=== PATIENT | female | born 1960 | race Two or more races ===

== ENCOUNTER 2024-12-30 12:00 | Inpatient (IN) | payer OTHER ==
[~2024-12-30] VITALS: Ht 157.5 cm; Wt 83.9 kg
[2025-01-03] MEDS ORDERED: SYNTHROID100 MCG PO (09:04)
[2025-01-03] MEDS ORDERED: ZOLOFT100 MG PO (09:05)
[2025-01-03] MEDS ORDERED: KLONOPIN (09:05)
[2025-01-03] MEDS ORDERED: NEURONTIN800 MG PO (09:06)
[2025-01-03] MEDS ORDERED: LIPITOR40 M1 PO (09:06)
[2025-01-03 09:08] VITALS: BP 114/69
[2025-01-03 09:13] VITALS: BP 109/69
[2025-01-05] MEDS ORDERED: CEFTRIAXONE SODIUM 2,000 MG VIAL ONE (11:15)
[2025-01-05] MEDS ORDERED: METRONIDAZOLE/SODIUM CHLORIDE 500 MG/100 ML PIGGYBACK IV ONE (11:15)
[2025-01-05] MEDS ORDERED: BUPIVACAINE HCL/MPF 0.5% 30ML VIAL ONE (12:48)
[2025-01-05] MEDS ORDERED: LIDOCAINE HCL 1%/EPINEPHRINE 20ML VIAL IJ ONE (12:49)
[2025-01-05] MEDS ORDERED: CHLORHEXIDINE GLUCONATE 120 ML BOTTLE TOP ONE (12:49)
[2025-01-05] MEDS ORDERED: ONDANSETRON HCL 2 MG/ML VIAL IV PRN (14:30)
[2025-01-05] MEDS ORDERED: OxyCODONE HCL 5 MG TABLET (ROXICODONE) PO PRN (14:30)
[2025-01-05] MEDS ORDERED: MORPHINE SULFATE 4 MG/ML CARTRIDGE IV PRN (14:30)
[2025-01-05] MEDS ORDERED: 0.9 % SODIUM CHLORIDE 1,000 ML IV SCH (14:30)
[2025-01-05] MEDS ORDERED: DEXTROSE 50 % IN WATER 0.5 G/ML VIAL IV PRN (14:30)
[2025-01-05] MEDS ORDERED: ENALAPRILAT DIHYDRATE 1.25 MG/ML VIAL IV ONE (15:06)
[2025-01-05] MEDS ORDERED: hydrALAZINE HCL 20 MG VIAL ONE (16:12)
[2025-01-05] MEDS ORDERED: POLYETHYLENE GLYCOL 3350 17 GM BLIST.PACK PO SCH (17:00)
[2025-01-05] MEDS ORDERED: GABAPENTIN 300 MG CAPSULE PO SCH (17:00)
[2025-01-05] MEDS ORDERED: METRONIDAZOLE/SODIUM CHLORIDE 500 MG/100 ML PIGGYBACK IV SCH (17:00)
[2025-01-05] MEDS ORDERED: HYOSCYAMINE SULFATE 0.125 MG TAB.SUBL SL SCH (17:00)
[2025-01-05] MEDS ORDERED: MORPHINE SULFATE 4 MG/ML VIAL IV ONE (17:20)
[2025-01-05] MEDS ORDERED: MORPHINE SULFATE 2 MG/ML CARTRIDGE IV ONE (18:05)
[2025-01-05] MEDS ORDERED: ACETAMINOPHEN 500 MG GEL..CAP PO SCH (20:00)
[2025-01-05] MEDS ORDERED: FAMOTIDINE/PF 20 MG/2 ML VIAL ONE (20:28)
[2025-01-05] MEDS ORDERED: FAMOTIDINE/PF 20 MG/2 ML VIAL IV PUSH SCH (21:00)
[2025-01-05 21:21] LABS: BASO % 0.2 % (0.1-1.2); EOS # 0.04 (0.04-0.54); EOS % 0.2 % (0.7-7.0); HEMATOCRIT 38.6 % (34.1-44.9); HEMOGLOBIN 11.9 g/dL (11.2-15.7); LYMPH % 5.4 % (19.3-53.1); MEAN CORPUSCULAR HEMOGLOBIN 26.9 pg (25.6-32.2); MONO # 1.35 (0.24-0.82); MONO % 7.3 % (4.7-12.5); NEUT # 15.89 (1.56-6.13); NEUT % 86.5 % (34.0-71.1); PLATELET COUNT 389 K/uL (163-369); RED BLOOD COUNT 4.42 M/uL (3.93-5.22); RED CELL DISTRIBUTION WIDTH 15.6 % (11.6-14.4)
[2025-01-05 21:37] LABS: ALBUMIN 3.3 gm/dL (3.4-5.0); CALCIUM 8.7 mg/dL (8.5-10.1); CREATININE SERUM 0.94 mg/dL (0.55-1.02); GFR 59.76; MAGNESIUM 1.8 mg/dL (1.8-2.4); PHOSPHOROUS 4.2 mg/dL (2.5-4.9); POTASSIUM 4.29 mEq/L (3.5-5.1)
[2025-01-05 21:59] VITALS: BP 114/69; O2SAT 96
[2025-01-06 03:11] VITALS: BP 112/64; O2SAT 90
[2025-01-06 08:00] VITALS: BP 115/68; O2SAT 95
[2025-01-06 08:40] LABS: BASO % 0.2 % (0.1-1.2); HEMATOCRIT 33.1 % (34.1-44.9); HEMOGLOBIN 10.3 g/dL (11.2-15.7); LYMPH # 1.68 (1.18-3.74); LYMPH % 13.7 % (19.3-53.1); MEAN CORPUSCULAR HEMOGLOBIN 27.5 pg (25.6-32.2); MONO # 1.09 (0.24-0.82); MONO % 8.9 % (4.7-12.5); NEUT # 9.44 (1.56-6.13); NEUT % 76.9 % (34.0-71.1); PLATELET COUNT 336 K/uL (163-369); RED BLOOD COUNT 3.75 M/uL (3.93-5.22); RED CELL DISTRIBUTION WIDTH 15.9 % (11.6-14.4)
[2025-01-06 09:07] LABS: ALBUMIN 2.7 gm/dL (3.4-5.0); CALCIUM 7.6 mg/dL (8.5-10.1); CREATININE SERUM 0.82 mg/dL (0.55-1.02); GFR 69.96; MAGNESIUM 1.8 mg/dL (1.8-2.4); POTASSIUM 4.09 mEq/L (3.5-5.1)
[2025-01-06] MEDS ORDERED: TAMSULOSIN HCL 0.4 MG CAP PO STA (14:32)
[2025-01-06 15:45] VITALS: BP 112/70; O2SAT 95
[2025-01-06] MEDS ORDERED: ENOXAPARIN SODIUM 40 MG/0.4 ML SYRINGE SUBCUTANEO SCH (17:00)
[2025-01-06] MEDS ORDERED: LIDOCAINE HCL 1% 10ML VIAL ONE (19:03)
[2025-01-07 00:57] VITALS: BP 119/70; O2SAT 91
[2025-01-07] MEDS ORDERED: LEVOTHYROXINE SODIUM 100 MCG TABLET PO SCH (06:00)
[2025-01-07 08:00] VITALS: BP 108/66; O2SAT 88
[2025-01-07] MEDS ORDERED: CLONAZEPAM 1 MG TABLET PO SCH (09:00)
[2025-01-07] MEDS ORDERED: Cyanocobalamin/Mecobalamin 1 TAB.SL SL SCH (09:00)
[2025-01-07] MEDS ORDERED: FOLIC ACID 1 MG TABLET PO SCH (09:00)
[2025-01-07] MEDS ORDERED: ENOXAPARIN SODIUM 40 MG/0.4 ML SYRINGE SUBCUTANEO SCH (09:00)
[2025-01-07] MEDS ORDERED: SERTRALINE HCL 100 MG TABLET PO SCH (09:00)
[2025-01-07 15:58] VITALS: BP 120/70; O2SAT 97
[2025-01-07] MEDS ORDERED: CALCIUM CARBONATE/VITAMIN D3 1 TAB TABLET PO SCH (17:00)
[2025-01-07] MEDS ORDERED: AMINO ACIDS 1 EACH TABLET PO SCH (17:00)
[2025-01-08] VITALS: BP 119/75; O2SAT 95
[2025-01-08 09:00] VITALS: BP 125/72; O2SAT 100
[2025-01-08] MEDS ORDERED: METHYLPREDNISOLONE SOD SUCC 40 MG VIAL IV SCH (15:00)
[2025-01-08] MEDS ORDERED: DIPHENHYDRAMINE HCL 50 MG/ML VIAL 1ML IV SCH (15:00)
[2025-01-08 16:11] VITALS: BP 113/70; O2SAT 96
[2025-01-09 00:15] VITALS: BP 132/80; O2SAT 96
[2025-01-09 08:30] VITALS: BP 123/73; O2SAT 93
[2025-01-09] MEDS ORDERED: METHYLPREDNISOLONE SOD SUCC 40 MG VIAL IV NR (09:00)
[2025-01-09] MEDS ORDERED: DIPHENHYDRAMINE HCL 50 MG/ML VIAL 1ML IV NR (09:00)
[2025-01-09] MEDS ORDERED: PANTOPRAZOLE SODIUM 40 MG in 0.9 % SODIUM CHLORIDE 8 ML IV PUSH NR (16:00)
[2025-01-09] MEDS ORDERED: 0.9 % SODIUM CHLORIDE 10 ML VIAL IJ ONE ×2 (16:52)
[2025-01-09 17:00] VITALS: BP 132/77; O2SAT 96
[2025-01-09] MEDS ORDERED: PANTOPRAZOLE SODIUM 40 MG/VIAL VIAL IV NR (17:30)
[2025-01-09 19:25] LABS: ABG PH 7.363 (7.35-7.45); ABG PO2 78.1 mmHg (80-100); ABG pCO2 46.1 mmHg (35-45); BASE EXCESS -0.2 mmol/l; BICARBONATE 25.6 mmol/l (23-25); SaO2 94.8 %
[2025-01-09 20:21] LABS: allen test SATISFACTORY; mode ROOM AIR; o2 21 %; puncture site RADIAL RIGHT
[2025-01-10 01:15] VITALS: BP 105/67; O2SAT 100
[2025-01-10 08:09] VITALS: BP 126/70; O2SAT 94
[2025-01-10] MEDS ORDERED: PERCOCET 5-3251 EACH PO (08:16)
[2025-01-10] MEDS ORDERED: ZOFRAN8 MG PO (08:17)
[2025-01-10] MEDS ORDERED: DICY20TA PO (08:17)
[2025-01-10] MEDS ORDERED: PROTONIX40 MG PO (08:18)
[2025-01-10] MEDS ORDERED: PANTOPRAZOLE SODIUM 40 MG in 0.9 % SODIUM CHLORIDE 8 ML IV PUSH SCH (09:00)
== END 2025-01-10 11:03 | disposition home or self-care (01) | DRG 331 ==
LOC: SURG 01-05 09:12 → O/R 01-05 09:12 → SURH 01-05 12:00 → SURG 01-05 17:56
PROVIDERS: Internal Medicine; ADMIT Surgery; ATTEND Surgery
PROC: 07BB4ZZ Excision of Mesenteric Lymphatic, Percutaneous Endoscopic Approach (ICD-10-PCS; 2025-01-05)
PROC: 0DTF4ZZ Resection of Right Large Intestine, Percutaneous Endoscopic Approach (ICD-10-PCS; principal; 2025-01-05 15:00)
PROC: 05HC33Z Insertion of Infusion Device into Left Basilic Vein, Percutaneous Approach (ICD-10-PCS; 2025-01-07)
PROC: BW24YZZ Computerized Tomography (CT Scan) of Chest and Abdomen using Other Contrast (ICD-10-PCS; 2025-01-08)
PROC: 4A033R1 Measurement of Arterial Saturation, Peripheral, Percutaneous Approach (ICD-10-PCS; 2025-01-09)
DX: C18.0 Malignant neoplasm of cecum (principal); R19.4 Change in bowel habit; J44.9 Chronic obstructive pulmonary disease, unspecified; R09.02 Hypoxemia; D64.9 Anemia, unspecified

== ENCOUNTER 2025-01-03 10:47 | Outpatient (CLI) | payer OTHER ==
[~2025-01-03 10:47] MED LIST: KLONOPIN; LIPITOR40 M1 PO; NEURONTIN800 MG PO; SYNTHROID100 MCG PO; ZOLOFT100 MG PO
== END 2025-01-03 10:59 | disposition home or self-care (01) ==
LOC: TOM 10:47
PROVIDERS: ATTEND Surgery
DX: C18.0 Malignant neoplasm of cecum (principal); R19.4 Change in bowel habit
CPT/HCPCS: 71260; 74177; Q9965

== ENCOUNTER 2025-01-16 12:24 | Emergency (ER) | payer OTHER ==
[~2025-01-16] VITALS: Ht 157.5 cm; Wt 83.9 kg
[~2025-01-16 12:24] MED LIST changes: +DICY20TA PO; +PERCOCET 5-3251 EACH PO; +PROTONIX40 MG PO; +ZOFRAN8 MG PO
[2025-01-16] MEDS ORDERED: PEPCID AC20 MG PO (13:21)
[2025-01-16] MEDS ORDERED: LACTOBACILLUS ACIDOPHILUS 1 CAP CAP PO ONE ×2 (14:56→15:00)
[2025-01-16] MEDS ORDERED: FAMOTIDINE/PF 20 MG/2 ML VIAL ONE ×2 (14:56→16:15)
[2025-01-16] MEDS ORDERED: 0.9 % SODIUM CHLORIDE 500 ML IV ONE (15:00)
[2025-01-16] MEDS ORDERED: FAMOTIDINE/PF 20 MG/2 ML VIAL IV ONE (15:00)
[2025-01-16 15:59] LABS: BASO % 0.5 % (0.1-1.2); EOS # 0.13 (0.04-0.54); EOS % 1.2 % (0.7-7.0); HEMATOCRIT 34.9 % (34.1-44.9); HEMOGLOBIN 10.8 g/dL (11.2-15.7); LYMPH # 2.04 (1.18-3.74); LYMPH % 18.4 % (19.3-53.1); MONO % 8.1 % (4.7-12.5); NEUT # 7.95 (1.56-6.13); NEUT % 71.4 % (34.0-71.1); PLATELET COUNT 470 K/uL (163-369); RED CELL DISTRIBUTION WIDTH 15.8 % (11.6-14.4)
[2025-01-16 16:16] LABS: PARTIAL THROMBOPLASTIN TIME 21.1 SECONDS (22.0-34.0); PROTHROMBIN TIME 10.9 SECONDS (9.0-11.5)
[2025-01-16 16:21] LABS: ALBUMIN 2.7 gm/dL (3.4-5.0); BILIRUBIN TOTAL 0.36 mg/dL (0.3-1.2); CALCIUM 8.9 mg/dL (8.5-10.1); CREATININE SERUM 1.01 mg/dL (0.55-1.02); GFR 55.01; GLOBULINA 4.4 G/DL (2.4-3.5); POTASSIUM 4.32 mEq/L (3.5-5.1); TOTAL PROTEIN 7.1 gm/dL (6.4-8.2)
[2025-01-16 16:59] LABS: URINE APPEARANCE Cloudy; URINE BILIRRUBIN Negative (NEGATIVE); URINE BLOOD Negative; URINE COLOR Yellow; URINE GLUCOSE Negative (NEGATIVE); URINE KETONE 15 (NEGATIVE); URINE LEUKOCYTE Small; URINE NITRATE Negative; URINE PROTEIN Trace (NEGATIVE)
[2025-01-16 17:01] LABS: URINE BACTERIA 2203.1 uL (0.0-1933); URINE EPITHELIAL CELLS 184.1 uL (0.0-38.8); URINE RBC 27.9 uL (0.0-20.8); URINE WBC 25.3 uL (0.0-23.2)
[2025-01-16 17:47] LABS: FECAL LEUKOCYTES NEGATIVE (NEGATIVE); ob POSITIVE (NEGATIVE)
[2025-01-16] MEDS ORDERED: CIPRO500 MG PO (18:32)
[2025-01-16] MEDS ORDERED: METRONIDAZOLE500 MG PO (18:32)
[2025-01-16] MEDS ORDERED: QUESTRAN POWDE378 GM PO (18:32)
[2025-01-16] MEDS ORDERED: PROTONIX40 MG PO (18:32)
== END 2025-01-16 18:58 ==
LOC: ER 12:24
PROVIDERS: General Practice
DX: R19.7 Diarrhea, unspecified (principal); R10.9 Unspecified abdominal pain; K92.1 Melena; E03.8 Other specified hypothyroidism; Z88.2 Allergy status to sulfonamides; Z88.6 Allergy status to analgesic agent; Z91.041 Radiographic dye allergy status
CPT/HCPCS: 36415; 74176; 96365; 96366; 99284; J3490; J7042